=== PATIENT | female | born 1960 | race African-American/Black ===

== ENCOUNTER 2020-01-28 17:00 | Emergency (ER) | payer BC ==
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
[2020-01-28] MEDS ORDERED: IBUPROFEN 400 MG TAB ONE (18:48)
[2020-01-28 19:16] VITALS: BP 137/85; TEMP 98.7; O2SAT 100
== END 2020-01-28 18:59 | disposition home or self-care (01) ==
LOC: ER 17:00
DX: S16.1XXA Strain of muscle, fascia and tendon at neck level, initial encounter (principal); V40.5XXA Car driver injured in collision with pedestrian or animal in traffic accident, initial encounter; I10 Essential (primary) hypertension
CPT/HCPCS: 99283